=== PATIENT | female | born 1995 | race Caucasian/White ===

== ENCOUNTER 2016-11-21 01:27 | Emergency (ER) | payer BC, OTHER ==
[~2016-11-21 01:27] MED LIST: AUGM500T34 OR; VICO5TAB16 PO; no historical meds
--- NOTE | 2016-11-21 02:59 | EDDOCDS ---
Nurse's Notes [facility] Name: Ines Montemayor Age: 21 yrs Sex: Female : 1995 Arrival Date: 11/21/2016 Time: 01:27 Bed TR3 Private MD: Diagnosis: Radiculopathy, cervical region Presentation: 11/21 01:44 Presenting complaint: Patient states: right shoulder pain started about 1800, comes in [facility] spurts and goes down into arm, forearm, hand, and fingertips. Adult Sepsis Screening: The patient does not have new or worsening altered mentation. Patient's respiratory rate is less than 22. Systolic blood pressure is greater than 100. Patient has a qSOFA score of 0- Negative Sepsis Screen. Suicide/Homicide risk assessment- the patient denies having any suicidal and/or homicidal ideations and does not present with any other emotional, behavioral or mental health complaints. Status: Patient is not a marketing services rep or dependent. Transition of care: patient was not received from another setting of care. 01:44 Acuity: GURPREET Level 4 [facility] 01:44 Method Of Arrival: Walkin/Carried/Asstd [facility] Triage Assessment: 01:46 General: Appears in no apparent distress, comfortable, Behavior is appropriate for age, [facility] cooperative. Pain: Location: right arm Pain currently is 4 out of 10 on a pain scale. HIV screening NA for this visit Offered previously. Musculoskeletal: Circulation, motion, and sensation intact Range of motion intact in all extremities. 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 Aleve 220 mg Oral cap (Last dose: 11/21/2016 00:00) 2. Merina IUD - PMHx: none; - PSHx: Appendectomy; - Social history: Smoking status: Patient states was never smoker of tobacco. No barriers to communication noted. - Family history: Not pertinent. - : The pt / caregiver states he / she is not on anticoagulants. Home medication list is obtained from the patient. - Exposure Risk Screening:: None identified. Screenin:56 Screening information is obtained from the patient. Fall risk: No risks identified. [facility] Assistance ADL's: requires no assistance with activities of daily living. Abuse/DV Screen: The patient / caregiver reports he/she is: not in a situation that causes fear, pain or injury. Nutritional screening: No deficits noted. Advance Directives: There is no active DNR order. home support is adequate. Assessment: 02:56 General: Appears in no apparent distress, comfortable, Behavior is appropriate for age, cjh cooperative, pleasant. Neurological: Level of Consciousness is awake, alert, Oriented to person, place, time. Respiratory: Airway is patent Respiratory effort is even, unlabored, Respiratory pattern is regular, symmetrical. Musculoskeletal: Circulation, motion, and sensation intact Range of motion intact in all extremities. Vital Signs: 01:33 BP 134 / 63; Pulse 78; Resp 18; Temp 97.6(O); Pulse Ox 99% ; Weight 99.79 kg; Height 5 ajs ft. 4 in. (162.56 cm); Pain 4/10; 01:33 Body Mass Index 37.76 (99.79 kg, 162.56 cm) ajs Vitals: 01:44 Log In Time: November 21, 2016 at 01:23. [facility] ED Course: 01:29 Patient visited by Iliana Denton. gjb 01:29 Patient moved to Waiting gjb 01:34 Patient visited by Shweta Lyman. ajs 01:43 Patient moved to Triage 2 cjh 01:45 Triage Initiated cjh 01:50 Patient moved to Triage 3 ajs 01:53 Favio Weathers PA is PHCP. btw 01:53 Hannah Valdez MD is Attending Physician. btw 01:53 Patient visited by Favio Weathers PA. btw 02:00 Leonard Shaikh DO is Referral Physician. btw 02:16 Patient moved to TR3 cj 02:19 [facility] Payment Agreement was scanned into [employer] and attached to record. hs2 02:56 The patient / caregiver is instructed regarding the plan of care and ED course. [facility] 02:56 No IV's were initiated during this patient's visit. No procedures done that require [facility] assistance. Order Results: There are currently no results for this order. Outcome: 02:01 Discharge ordered by Provider. btw 02:56 Discharge Assessment: Patient awake, alert and oriented x 3. No cognitive and/or [facility] functional deficits noted. Patient verbalized understanding of disposition instructions. patient administered narcotics - no. The following High Risk Discharge criteria are identified: None. Discharged to home ambulatory. Condition: good Condition: stable. Discharge instructions given to patient, Instructed on discharge instructions, follow up and referral plans. medication usage, Demonstrated understanding of instructions, medications, Pt was receptive of discharge instructions/ teaching. Prescriptions given X 2. No special radiology studies were completed. Property :Personal belongings accompany Pt. 02:58 Patient left the ED. [facility] Signatures: Favio Weathers PA PA btw Slate, Amanda ajs Hafner, Jane, RN RN [facility] Iliana Denton Hillary, Reg Reg hs2 MTDD
--- NOTE | 2016-11-21 02:59 | EDDOCDS ---
Physician Documentation [facility] Name: Ines Montemayor Age: 21 yrs Sex: Female : 1995 Arrival Date: 11/21/2016 Time: 01:27 Bed TR3 Private MD: Disposition: 11/21/16 02:01 Discharged to Home/Self Care. Impression: Radiculopathy, cervical region. - Condition is Stable. - Discharge Instructions: Cervical Radiculopathy, [id number]. - Prescriptions for Robaxin- 750 750 mg Oral Tablet - take 1 tablet by ORAL route every 6 hours As needed; 40 tablet. etodolac 200 mg Oral Capsule - take 1 capsule by ORAL route 3 times per day; 30 capsule. - Medication Reconciliation, Local Pharmacy Hours form. - Follow up: Leonard Shaikh DO; When: Call to arrange an appointment; Reason: Further diagnostic work-up, Recheck today's complaints, Continuance of care. - Problem is new. - Symptoms are unchanged. Historical: - Allergies: no known allergies; - Home Meds: 1. Aleve 220 mg Oral cap (Last dose: 11/21/2016 00:00) 2. Merina IUD - PMHx: none; - PSHx: Appendectomy; - Social history: Smoking status: Patient states was never smoker of tobacco. No barriers to communication noted. - Family history: Not pertinent. - : The pt / caregiver states he / she is not on anticoagulants. Home medication list is obtained from the patient. - Exposure Risk Screening:: None identified. 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 4 in. (162.56 cm); Pain 4/10; 01:33 Body Mass Index 37.76 (99.79 kg, 162.56 cm) [facility] MDM: 02:18 Financial registration complete. hs2 02:19 [facility] Payment Agreement was scanned into [employer] and attached to record. hs2 Signatures: Favio Weathers PA PA btw Marina Camacho RN RN Marilia Garcia, Reg Reg hs2 The chart was reviewed and I authenticate all verbal orders and agree with the evaluation and treatment provided.Attachments: 02:19 [facility] Payment Agreement hs2 MTDD
--- NOTE | 2016-11-23 03:59 | EDDOCDS ---
Physician Documentation [facility] Name: Ines Montemayor Age: 21 yrs Sex: Female : 1995 Arrival Date: 11/21/2016 Time: 01:27 Bed TR3 Private MD: Disposition: 11/21/16 02:01 Discharged to Home/Self Care. Impression: Radiculopathy, cervical region. - Condition is Stable. - Discharge Instructions: Cervical Radiculopathy, [id number]-rp-[id number]. - Prescriptions for Robaxin- 750 750 mg Oral Tablet - take 1 tablet by ORAL route every 6 hours As needed; 40 tablet. etodolac 200 mg Oral Capsule - take 1 capsule by ORAL route 3 times per day; 30 capsule. - Medication Reconciliation, Local Pharmacy Hours form. - Follow up: Leonard Shaikh DO; When: Call to arrange an appointment; Reason: Further diagnostic work-up, Recheck today's complaints, Continuance of care. - Problem is new. - Symptoms are unchanged. Historical: - Allergies: no known allergies; - Home Meds: 1. Aleve 220 mg Oral cap (Last dose: 11/21/2016 00:00) 2. Merina IUD - PMHx: none; - PSHx: Appendectomy; - Social history: Smoking status: Patient states was never smoker of tobacco. No barriers to communication noted. - Family history: Not pertinent. - : The pt / caregiver states he / she is not on anticoagulants. Home medication list is obtained from the patient. - Exposure Risk Screening:: None identified. 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 4 in. (162.56 cm); Pain 4/10; 01:33 Body Mass Index 37.76 (99.79 kg, 162.56 cm) [facility] MDM: 02:18 Financial registration complete. hs2 02:19 [facility] Payment Agreement was scanned into [employer] and attached to record. hs2 13:43 T-Sheet-- Draft Copy was scanned into [employer] and attached to record. gb Signatures: Johanna May, Reg Reg gb Favio Weathers PA PA btw Marina Camacho,RN RN [facility] Marilia Coreas, Reg Reg hs2 The chart was reviewed and I authenticate all verbal orders and agree with the evaluation and treatment provided.Attachments: 02:19 [facility] Payment Agreement hs2 13:43 T-Sheet-- Draft Copy gb Chart Complete MTDD
--- NOTE | 2016-11-23 03:59 | EDDOCDS ---
Nurse's Notes [facility] Name: Ines Montemayor Age: 21 yrs Sex: Female : 1995 Arrival Date: 11/21/2016 Time: 01:27 Bed TR3 Private MD: Diagnosis: Radiculopathy, cervical region Presentation: 11/21 01:44 Presenting complaint: Patient states: right shoulder pain started about 1800, comes in [facility] spurts and goes down into arm, forearm, hand, and fingertips. Adult Sepsis Screening: The patient does not have new or worsening altered mentation. Patient's respiratory rate is less than 22. Systolic blood pressure is greater than 100. Patient has a qSOFA score of 0- Negative Sepsis Screen. Suicide/Homicide risk assessment- the patient denies having any suicidal and/or homicidal ideations and does not present with any other emotional, behavioral or mental health complaints. Status: Patient is not a director of home health services or dependent. Transition of care: patient was not received from another setting of care. 01:44 Acuity: GURPREET Level 4 [facility] 01:44 Method Of Arrival: Walkin/Carried/Asstd [facility] Triage Assessment: 01:46 General: Appears in no apparent distress, comfortable, Behavior is appropriate for age, [facility] cooperative. Pain: Location: right arm Pain currently is 4 out of 10 on a pain scale. HIV screening NA for this visit Offered previously. Musculoskeletal: Circulation, motion, and sensation intact Range of motion intact in all extremities. 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 Aleve 220 mg Oral cap (Last dose: 11/21/2016 00:00) 2. Merina IUD - PMHx: none; - PSHx: Appendectomy; - Social history: Smoking status: Patient states was never smoker of tobacco. No barriers to communication noted. - Family history: Not pertinent. - : The pt / caregiver states he / she is not on anticoagulants. Home medication list is obtained from the patient. - Exposure Risk Screening:: None identified. Screenin:56 Screening information is obtained from the patient. Fall risk: No risks identified. [facility] Assistance ADL's: requires no assistance with activities of daily living. Abuse/DV Screen: The patient / caregiver reports he/she is: not in a situation that causes fear, pain or injury. Nutritional screening: No deficits noted. Advance Directives: There is no active DNR order. home support is adequate. Assessment: 02:56 General: Appears in no apparent distress, comfortable, Behavior is appropriate for age, cjh cooperative, pleasant. Neurological: Level of Consciousness is awake, alert, Oriented to person, place, time. Respiratory: Airway is patent Respiratory effort is even, unlabored, Respiratory pattern is regular, symmetrical. Musculoskeletal: Circulation, motion, and sensation intact Range of motion intact in all extremities. Vital Signs: 01:33 BP 134 / 63; Pulse 78; Resp 18; Temp 97.6(O); Pulse Ox 99% ; Weight 99.79 kg; Height 5 ajs ft. 4 in. (162.56 cm); Pain 4/10; 01:33 Body Mass Index 37.76 (99.79 kg, 162.56 cm) ajs Vitals: 01:44 Log In Time: November 21, 2016 at 01:23. [facility] ED Course: 01:29 Patient visited by Iliana Denton. gjb 01:29 Patient moved to Waiting gjb 01:34 Patient visited by Shweta Lyman. ajs 01:43 Patient moved to Triage 2 cjh 01:45 Triage Initiated cjh 01:50 Patient moved to Triage 3 ajs 01:53 Favio Weathers PA is PHCP. btw 01:53 Hannah Valdez MD is Attending Physician. btw 01:53 Patient visited by Favio Weathers PA. btw 02:00 Leonard Shaikh DO is Referral Physician. btw 02:16 Patient moved to TR3 cj 02:19 [facility] Payment Agreement was scanned into [employer] and attached to record. hs2 02:56 The patient / caregiver is instructed regarding the plan of care and ED course. [facility] 02:56 No IV's were initiated during this patient's visit. No procedures done that require [facility] assistance. 13:43 T-Sheet-- Draft Copy was scanned into [employer] and attached to record. gb Order Results: There are currently no results for this order. Outcome: 02:01 Discharge ordered by Provider. btw 02:56 Discharge Assessment: Patient awake, alert and oriented x 3. No cognitive and/or [facility] functional deficits noted. Patient verbalized understanding of disposition instructions. patient administered narcotics - no. The following High Risk Discharge criteria are identified: None. Discharged to home ambulatory. Condition: good Condition: stable. Discharge instructions given to patient, Instructed on discharge instructions, follow up and referral plans. medication usage, Demonstrated understanding of instructions, medications, Pt was receptive of discharge instructions/ teaching. Prescriptions given X 2. No special radiology studies were completed. Property :Personal belongings accompany Pt. 02:58 Patient left the ED. [facility] Signatures: Johanna May, Reg Reg gb Favio Weathers PA PA btw Slate, Amanda ajs Hafner, Jane, RN RN [facility] Iliana Denton Hillary, Reg Reg hs2 Chart Complete BETI
--- NOTE | 2016-11-23 03:59 | EDDOCDS ---
Physician Documentation [facility] Name: Ines Montemayor Age: 21 yrs Sex: Female : 1995 Arrival Date: 11/21/2016 Time: 01:27 Bed TR3 Private MD: Disposition: 11/21/16 02:01 Discharged to Home/Self Care. Impression: Radiculopathy, cervical region. - Condition is Stable. - Discharge Instructions: Cervical Radiculopathy, [id number]. - Prescriptions for Robaxin- 750 750 mg Oral Tablet - take 1 tablet by ORAL route every 6 hours As needed; 40 tablet. etodolac 200 mg Oral Capsule - take 1 capsule by ORAL route 3 times per day; 30 capsule. - Medication Reconciliation, Local Pharmacy Hours form. - Follow up: Leonard Shaikh DO; When: Call to arrange an appointment; Reason: Further diagnostic work-up, Recheck today's complaints, Continuance of care. - Problem is new. - Symptoms are unchanged. Historical: - Allergies: no known allergies; - Home Meds: 1. Aleve 220 mg Oral cap (Last dose: 11/21/2016 00:00) 2. Merina IUD - PMHx: none; - PSHx: Appendectomy; - Social history: Smoking status: Patient states was never smoker of tobacco. No barriers to communication noted. - Family history: Not pertinent. - : The pt / caregiver states he / she is not on anticoagulants. Home medication list is obtained from the patient. - Exposure Risk Screening:: None identified. 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 4 in. (162.56 cm); Pain 4/10; 01:33 Body Mass Index 37.76 (99.79 kg, 162.56 cm) [facility] MDM: 02:18 Financial registration complete. hs2 02:19 [facility] Payment Agreement was scanned into [employer] and attached to record. hs2 13:43 T-Sheet-- Draft Copy was scanned into [employer] and attached to record. gb Signatures: Johanna May, Reg Reg gb Favio Weathers PA PA btw Marina Camacho,RN RN [facility] Marilia Coreas, Reg Reg hs2 The chart was reviewed and I authenticate all verbal orders and agree with the evaluation and treatment provided.Attachments: 02:19 [facility] Payment Agreement hs2 13:43 T-Sheet-- Draft Copy gb Chart Complete MTDD
== END 2016-11-21 02:58 | disposition home or self-care (01) ==
LOC: M ED 01:27
DX: M54.12 Radiculopathy, cervical region (principal); Z79.3 Long term (current) use of hormonal contraceptives

== ENCOUNTER 2017-02-07 00:38 | Emergency (ER) | payer BC ==
[~2017-02-07] VITALS: Ht 162.6 cm; Wt 99.8 kg
[2017-02-07 01:43] VITALS: BP 135/91
[2017-02-07] MEDS ORDERED: AMOX500C PO (02:30)
[2017-02-07] MEDS ORDERED: AMOXICILLIN 500 MG CAP PO ONE (02:30)
== END 2017-02-07 02:38 | disposition home or self-care (01) ==
LOC: M ED 02:04
DX: H66.91 Otitis media, unspecified, right ear (principal)

== ENCOUNTER 2017-07-03 06:16 | Emergency (ER) | payer BC, SELFPAY ==
[~2017-07-03] VITALS: Ht 162.6 cm; Wt 100.0 kg
[~2017-07-03 06:16] MED LIST changes: +AMOX500C PO
[2017-07-03] MEDS ORDERED: CLEO300C2 PO (07:21)
[2017-07-03] MEDS ORDERED: NORCOTAB PO (07:21)
[2017-07-03 07:29] VITALS: BP 147/92
[2017-07-03] MEDS ORDERED: LIDOCAINE VISCOUS 2% SOLN 15ML UDC SSP ONE (07:30)
[2017-07-03] MEDS ORDERED: CLINDAMYCIN 150 MG CAP PO ONE (07:30)
== END 2017-07-03 07:29 | disposition home or self-care (01) ==
LOC: M ED 06:16
DX: K04.7 Periapical abscess without sinus (principal); R05 Cough

== ENCOUNTER → 2017-11-06 | Outpatient (CLI) | payer MEDICAID ==
[2017-11-06 18:47] LABS: BASO % 0.3 % (0.0-1.0); EOS # 0.1 10^3/uL (0.0-0.50); EOS % 0.7 % (0.0-3.0); IMMATURE GRANULOCYTE # 0.1 10^3/uL (0-0); IMMATURE GRANULOCYTE % 0.5 % (0-0); LYMPH # 2.3 10^3/uL (1.5-6.5); LYMPH % 24.4 % (24.0-44.0); MEAN CORPUSCULAR HEMOGLOBIN 30.3 pg (27.0-33.0); MEAN CORPUSCULAR HGB CONC 33.8 g/dl (32.0-36.5); MEAN CORPUSCULAR VOLUME 89.6 fl (80.0-96.0); MONO # 0.6 10^3/uL (0.0-0.8); MONO % 5.8 % (0.0-5.0); NEUTROPHILS # 6.4 10^3/uL (1.8-7.7); NEUTROPHILS % 68.3 % (36.0-66.0); PLATELET COUNT, AUTOMATED 282 10^3/uL (150-450); WHITE BLOOD COUNT 9.4 10^3/uL (4.0-10.0)
[2017-11-07 10:26] LABS: HBsAg Prenatal NEGATIVE (NEGATIVE)
== END ==
LOC: M SMT 13:01
DX: Z36.89 Encounter for other specified antenatal screening (principal); Z3A.08 8 weeks gestation of pregnancy
CPT/HCPCS: 86762

== ENCOUNTER 2017-11-10 18:52 | Emergency (ER) | payer MEDICAID | END 2017-11-10 22:43 | disposition home or self-care (01) | LOC: M ED 18:52 | DX: O99.89 Other specified diseases and conditions complicating pregnancy, childbirth and the puerperium (principal); H92.01 Otalgia, right ear; O99.611 Diseases of the digestive system complicating pregnancy, first trimester; K08.89 Other specified disorders of teeth and supporting structures; Z3A.08 8 weeks gestation of pregnancy | CPT/HCPCS: 99283 ==

== ENCOUNTER → 2017-12-03 | Outpatient (REF) | payer MEDICAID ==
[2017-12-04 11:36] LABS: CHLAMYDIA DNA AMPLIFICATION NEGATIVE (NEGATIVE); GC DNA AMPLIFICATION NEGATIVE (NEGATIVE)
== END ==
LOC: M LAB REF 09:39
DX: Z11.3 Encounter for screening for infections with a predominantly sexual mode of transmission (principal)
CPT/HCPCS: 87591

== ENCOUNTER 2017-12-08 15:33 | Emergency (ER) | payer MEDICAID ==
[2017-12-08] MEDS: METOCLOPRAMIDE INJ 10MG/2ML VIAL (J2765) IV (19:15)
[2017-12-08] MEDS: diphenhydrAMINE INJ 50MG/ML VIAL (J1200) IV (19:15)
[2017-12-08] MEDS: NS 1,000 ML IV (19:15)
[2017-12-08 19:55] LABS: BASO % 0.2 % (0.0-1.0); EOS # 0.1 10^3/uL (0.0-0.50); EOS % 0.8 % (0.0-3.0); HEMATOCRIT 42.3 % (36.0-47.0); HEMOGLOBIN 14.5 g/dl (12.0-16.0); IMMATURE GRANULOCYTE % 0.3 % (0-0); LYMPH # 2.5 10^3/uL (1.5-6.5); LYMPH % 23.8 % (24.0-44.0); MEAN CORPUSCULAR HEMOGLOBIN 30.4 pg (27.0-33.0); MEAN CORPUSCULAR HGB CONC 34.3 g/dl (32.0-36.5); MEAN CORPUSCULAR VOLUME 88.7 fl (80.0-96.0); MONO # 0.5 10^3/uL (0.0-0.8); MONO % 5.2 % (0.0-5.0); NEUTROPHILS # 7.3 10^3/uL (1.8-7.7); NEUTROPHILS % 69.7 % (36.0-66.0); PLATELET COUNT, AUTOMATED 258 10^3/uL (150-450); RED BLOOD COUNT 4.77 10^6/uL (4.00-5.40); RED CELL DISTRIBUTION WIDTH 12.8 % (11.5-14.5); WHITE BLOOD COUNT 10.5 10^3/uL (4.0-10.0)
[2017-12-08 20:16] LABS: ALBUMIN 3.7 GM/DL (3.2-5.2); ALBUMIN/GLOBULIN RATIO 0.82 (1.00-1.93); ALKALINE PHOSPHATASE 72 U/L (45-117); ALT/SGPT 25 U/L (12-78); ANION GAP 11 MEQ/L (8-16); AST/SGOT 17 U/L (7-37); BILIRUBIN,TOTAL 0.3 MG/DL (0.2-1.0); BLOOD UREA NITROGEN 5 MG/DL (7-18); CALCIUM LEVEL 9.2 MG/DL (8.5-10.1); CARBON DIOXIDE LEVEL 25 MEQ/L (21-32); CHLORIDE LEVEL 103 MEQ/L (98-107); CREATININE FOR GFR 0.52 MG/DL (0.55-1.30); GLOMERULAR FILTRATION RATE > 60.0 (>60); GLUCOSE, FASTING 81 MG/DL (70-100); POTASSIUM SERUM 3.8 MEQ/L (3.5-5.1); SODIUM LEVEL 139 MEQ/L (136-145); TOTAL PROTEIN 8.2 GM/DL (6.4-8.2)
== END 2017-12-08 22:01 | disposition home or self-care (01) ==
LOC: M ED 15:33
DX: O21.9 Vomiting of pregnancy, unspecified (principal); Z3A.00 Weeks of gestation of pregnancy not specified; Z87.820 Personal history of traumatic brain injury
CPT/HCPCS: J1200

== ENCOUNTER → 2018-01-15 | Outpatient (CLI) | payer MEDICAID | LOC: M RAD 14:01 | DX: Z36.89 Encounter for other specified antenatal screening (principal); Z3A.18 18 weeks gestation of pregnancy | CPT/HCPCS: 76811 ==

== ENCOUNTER → 2018-02-10 | Outpatient (CLI) | payer MEDICAID | LOC: M RAD 14:00 | DX: R22.42 Localized swelling, mass and lump, left lower limb (principal) | CPT/HCPCS: 93971 ==

== ENCOUNTER → 2018-02-12 | Outpatient (CLI) | payer MEDICAID | LOC: M RAD 10:25 | DX: Z34.82 Encounter for supervision of other normal pregnancy, second trimester (principal); Z36.2 Encounter for other antenatal screening follow-up; Z3A.22 22 weeks gestation of pregnancy | CPT/HCPCS: 76816 ==

== ENCOUNTER → 2018-03-12 | Outpatient (CLI) | payer MEDICAID | LOC: M SMT 08:27 | DX: Z36.2 Encounter for other antenatal screening follow-up (principal); Z3A.26 26 weeks gestation of pregnancy | CPT/HCPCS: 76816 ==

== ENCOUNTER → 2018-04-17 | Outpatient (CLI) | payer MEDICAID, BC, SELFPAY ==
[2018-04-17 10:12] LABS: BASO % 0.1 % (0.0-1.0); EOS # 0.1 10^3/uL (0.0-0.50); EOS % 0.7 % (0.0-3.0); HEMATOCRIT 33.8 % (36.0-47.0); HEMOGLOBIN 11.3 g/dl (12.0-15.5); IMMATURE GRANULOCYTE % 0.4 % (0-3.0); LYMPH # 1.7 10^3/uL (1.5-6.5); LYMPH % 20.8 % (24.0-44.0); MEAN CORPUSCULAR HEMOGLOBIN 29.2 pg (27.0-33.0); MEAN CORPUSCULAR HGB CONC 33.4 g/dl (32.0-36.5); MEAN CORPUSCULAR VOLUME 87.3 fl (80.0-96.0); MONO # 0.4 10^3/uL (0.0-0.8); MONO % 4.6 % (0.0-5.0); NEUTROPHILS # 6.1 10^3/uL (1.8-7.7); NEUTROPHILS % 73.4 % (36.0-66.0); PLATELET COUNT, AUTOMATED 217 10^3/uL (150-450); RED BLOOD COUNT 3.87 10^6/uL (4.00-5.40); RED CELL DISTRIBUTION WIDTH 13.6 % (11.5-14.5); WHITE BLOOD COUNT 8.3 10^3/uL (4.0-10.0)
[2018-04-17 10:28] LABS: GLUCOSE CHALLENGE TEST 1 HOUR 130 MG/DL (LESS THAN 140)
== END ==
LOC: M LAB 08:26
DX: Z34.82 Encounter for supervision of other normal pregnancy, second trimester (principal); Z36.89 Encounter for other specified antenatal screening
CPT/HCPCS: 82950

== ENCOUNTER → 2018-04-21 | Outpatient (CLI) | payer MEDICAID, SELFPAY, BC ==
[2018-04-21 08:14] LABS: GLUCOSE, FASTING 88 MG/DL (LESS THAN 95)
[2018-04-21 09:34] LABS: 1 HR GLUCOSE 155 MG/DL (LESS THAN 180)
[2018-04-21 10:17] LABS: 2 HR GLUCOSE 127 MG/DL (LESS THAN 155)
[2018-04-21 11:20] LABS: 3 HR GLUCOSE 118 MG/DL (LESS THAN 140)
== END ==
LOC: M LAB 07:22
DX: Z34.83 Encounter for supervision of other normal pregnancy, third trimester (principal); Z36.89 Encounter for other specified antenatal screening
CPT/HCPCS: 82951

== ENCOUNTER 2018-05-25 00:47 | Outpatient (CLI) | payer BC, MEDICAID ==
[2018-05-25] MEDS ORDERED: LR 1,000 ML IV ×3 (02:09)
[2018-05-25] MEDS ORDERED: LACTATED RINGER'S 1000 ML IV ×3 (02:09)
[2018-05-25 02:36] LABS: BASO % 0.1 % (0.0-1.0); EOS % 0.3 % (0.0-3.0); HEMOGLOBIN 11.1 g/dl (12.0-15.5); IMMATURE GRANULOCYTE % 0.3 % (0-3.0); LYMPH # 1.6 10^3/uL (1.5-6.5); LYMPH % 14.1 % (24.0-44.0); MEAN CORPUSCULAR HEMOGLOBIN 27.7 pg (27.0-33.0); MEAN CORPUSCULAR HGB CONC 32.6 g/dl (32.0-36.5); MEAN CORPUSCULAR VOLUME 84.8 fl (80.0-96.0); MONO # 0.5 10^3/uL (0.0-0.8); MONO % 4.1 % (0.0-5.0); NEUTROPHILS # 9.3 10^3/uL (1.8-7.7); NEUTROPHILS % 81.1 % (36.0-66.0); PLATELET COUNT, AUTOMATED 230 10^3/uL (150-450); RED BLOOD COUNT 4.01 10^6/uL (4.00-5.40); RED CELL DISTRIBUTION WIDTH 13.9 % (11.5-14.5); WHITE BLOOD COUNT 11.4 10^3/uL (4.0-10.0)
[2018-05-25 03:02] LABS: ALBUMIN 2.5 GM/DL (3.2-5.2); ALBUMIN/GLOBULIN RATIO 0.66 (1.00-1.93); ALKALINE PHOSPHATASE 161 U/L (45-117); ALT/SGPT 19 U/L (12-78); ANION GAP 11 MEQ/L (8-16); AST/SGOT 15 U/L (7-37); BILIRUBIN,TOTAL 0.3 MG/DL (0.2-1.0); BLOOD UREA NITROGEN 4 MG/DL (7-18); CALCIUM LEVEL 8.5 MG/DL (8.5-10.1); CARBON DIOXIDE LEVEL 22 MEQ/L (21-32); CHLORIDE LEVEL 109 MEQ/L (98-107); CREATININE FOR GFR 0.51 MG/DL (0.55-1.30); GLOMERULAR FILTRATION RATE > 60.0 (>60); GLUCOSE, FASTING 86 MG/DL (70-100); LIPASE 80 U/L (73-393); SODIUM LEVEL 142 MEQ/L (136-145); TOTAL PROTEIN 6.3 GM/DL (6.4-8.2)
== END 2018-05-25 04:43 | disposition home or self-care (01) ==
LOC: M LDO 00:47
DX: O99.89 Other specified diseases and conditions complicating pregnancy, childbirth and the puerperium (principal); Z3A.37 37 weeks gestation of pregnancy; R10.10 Upper abdominal pain, unspecified; R11.10 Vomiting, unspecified; E86.0 Dehydration
CPT/HCPCS: 59025; 83690

== ENCOUNTER → 2018-05-27 | Outpatient (REF) | payer MEDICAID | LOC: M LAB REF 13:23 | DX: Z34.83 Encounter for supervision of other normal pregnancy, third trimester (principal) ==

== ENCOUNTER 2018-06-22 11:26 | Inpatient (IN) | payer MEDICAID ==
[2018-06-22] MEDS: miSOPROStol 50 MCG 1/2 TAB (S0191) PO ×3 (13:24→20:30)
[2018-06-22 13:29] LABS: HEMATOCRIT 32.5 % (36.0-47.0); HEMOGLOBIN 10.6 g/dl (12.0-15.5); MEAN CORPUSCULAR HEMOGLOBIN 27.2 pg (27.0-33.0); MEAN CORPUSCULAR HGB CONC 32.6 g/dl (32.0-36.5); MEAN CORPUSCULAR VOLUME 83.3 fl (80.0-96.0); PLATELET COUNT, AUTOMATED 229 10^3/uL (150-450); RED CELL DISTRIBUTION WIDTH 15.1 % (11.5-14.5); WHITE BLOOD COUNT 6.9 10^3/uL (4.0-10.0)
[2018-06-22] MEDS ORDERED: OXYTOCIN 30 UNITS IN 0.9% NaCl 500ML IV BAG (J2590) As Ordered (22:10)
[2018-06-23] MEDS: LR 1,000 ML IV (00:29)
[2018-06-23] MEDS: OXYTOCIN DRIP 30 UNITS in APPROPRIATE DILUENT 1 EA IV (00:39)
[2018-06-23] MEDS ORDERED: FENTANYL 2MCG/ML ROPIVACAINE 0.2% IN 0.9% NACL 200ML IVBAG As Ordered (01:36)
[2018-06-23] MEDS ORDERED: diphenhydrAMINE INJ 50MG/ML VIAL (J1200) IV (02:44)
[2018-06-23] MEDS ORDERED: EPIDURAL COMMENT XX (02:44)
[2018-06-23] MEDS: FENTANYL/ROPIVACAINE/NACL BAG 200 ML EPIDURAL (02:44)
[2018-06-23] MEDS ORDERED: EPIDURAL/PCA KEYS XX (02:44)
[2018-06-23] MEDS ORDERED: REFRIGERATOR IV KEYS XX (02:44)
[2018-06-23] MEDS ORDERED: LACTATED RINGER'S 1000 ML IV (02:44)
[2018-06-23] MEDS ORDERED: NALOXONE INJ 0.4 MG/1 ML VIAL (J2310) IV (02:44)
[2018-06-23] MEDS ORDERED: ePHEDrine SULFATE 25 MG/5 ML(5MG/ML) SYRINGE IV (02:44)
[2018-06-23] MEDS ORDERED: ONDANSETRON 4MG/2ML VIAL (J2405) IV ×2 (02:44→09:30)
[2018-06-23] MEDS ORDERED: DOCUSATE SODIUM 100 MG CAP PO (09:30)
[2018-06-23] MEDS ORDERED: ACETAMINOPHEN 500 MG TAB PO (09:30)
[2018-06-23] MEDS ORDERED: RHOGAM 300 MCG (1500 IU) INJ (J2790) IM (09:30)
[2018-06-23] MEDS ORDERED: DIBUCAINE 1% OINTMENT 30GM TOP (09:30)
[2018-06-23] MEDS: PRENATAL VITAMINS CHEWABLE TABLET PO (09:52)
[2018-06-23] MEDS: IBUPROFEN 800 MG TAB PO ×3 (09:52→19:35)
[2018-06-24] MEDS: PRENATAL VITAMINS CHEWABLE TABLET PO (08:56)
[2018-06-25] MEDS: PRENATAL VITAMINS CHEWABLE TABLET PO (09:00)
[2018-06-25] MEDS: MEASLES,MUMPS,RUBELLA VACCINE INJ (MMR-II) (90707) SC (11:47)
== END 2018-06-25 12:10 | disposition home or self-care (01) | DRG 560 ==
LOC: M LDI 11:26 → M OBS 06-23 12:34
PROVIDERS: Obstetrics & Gynecology
PROC: 3E0P7GC Introduction of Other Therapeutic Substance into Female Reproductive, Via Natural or Artificial Opening (ICD-10-PCS; 2018-06-22)
PROC: 10E0XZZ Delivery of Products of Conception, External Approach (ICD-10-PCS; principal; 2018-06-23)
PROC: 0KQM0ZZ Repair Perineum Muscle, Open Approach (ICD-10-PCS; 2018-06-23)
DX: O48.0 Post-term pregnancy (principal); Z3A.41 41 weeks gestation of pregnancy; O69.81X0 Labor and delivery complicated by cord around neck, without compression, not applicable or unspecified; O70.1 Second degree perineal laceration during delivery; Z37.0 Single live birth

== ENCOUNTER → 2019-03-04 | Outpatient (CLI) | payer BC, MEDICAID ==
[~2019-03-04] MED LIST changes: +CLEO300C2 PO; +DRAM50TA7 PO; +HYDR-3715 PO; +IBUP-1114 PO; +MAPA500T2 PO; +PREN1TAB26 PO
[2019-03-04 14:05] LABS: BASO % 0.3 % (0.0-1.0); EOS # 0.1 10^3/uL (0.0-0.50); HEMATOCRIT 37.3 % (36.0-47.0); HEMOGLOBIN 12.1 g/dl (12.0-15.5); LYMPH # 1.9 10^3/uL (1.5-6.5); LYMPH % 26.3 % (24.0-44.0); MEAN CORPUSCULAR HEMOGLOBIN 27.3 pg (27.0-33.0); MEAN CORPUSCULAR HGB CONC 32.4 g/dl (32.0-36.5); MONO # 0.4 10^3/uL (0.0-0.8); MONO % 5.9 % (0.0-5.0); NEUTROPHILS # 4.7 10^3/uL (1.8-7.7); NEUTROPHILS % 65.2 % (36.0-66.0); PLATELET COUNT, AUTOMATED 254 10^3/uL (150-450); RED BLOOD COUNT 4.44 10^6/uL (4.00-5.40); WHITE BLOOD COUNT 7.2 10^3/uL (4.0-10.0)
[2019-03-04 15:25] LABS: CHLAMYDIA DNA AMPLIFICATION NEGATIVE (NEGATIVE); GC DNA AMPLIFICATION NEGATIVE (NEGATIVE)
[2019-03-05 12:25] LABS: HEPATITIS C VIRUS ABY INDEX 0.1 INDEX (<0.8); RUBELLA IgG QUALITATIVE IMMUNE (IMMUNE)
[2019-03-05 15:21] LABS: HIV 1&2 SCREEN CENTAUR NEGATIVE (NEGATIVE)
== END ==
LOC: M SMT 10:55
PROVIDERS: ATTEND Advanced Practice Midwife
DX: Z34.81 Encounter for supervision of other normal pregnancy, first trimester (principal); Z3A.00 Weeks of gestation of pregnancy not specified

== ENCOUNTER → 2019-05-04 | Outpatient (CLI) | payer BC, MEDICAID ==
--- NOTE | 2019-05-04 11:38 | REP ---
Clinical: Anatomical evaluation. Comparison: None . Findings: Examination demonstrates a single live intrauterine in cephalic presentation. motion is identified by technologist. Placenta is noted posterior and grade zero without evidence for placenta previa or abruption. Amniotic fluid volume is normal. Cervix measures 5.0 cm in length and appears closed. No evidence for nuchal cord. Gestational age by LMP 19 weeks 4 days with LALY 09/24/2019 . Gestational age by current measurements 20 weeks 1 day with LALY 06/20 11:19 . FHR equals 157 beats per minute. BPD 4.7 cm 20 weeks 2 days HC 17.7 cm 20 weeks 1 day AC 14.5 cm 19 weeks 6 days FL 3.2 cm 20 weeks 0 days HL 3.1 cm 20 weeks 2 days HC/AC ratio 1.22 Estimated weight 324 grams (60th percentile). Anatomical assessment demonstrates normal structures including cranium, choroid plexus, cavum, lungs, diaphragm, stomach, cord insertion/three-vessel cord, kidneys/bladder, and extremities. Impression: 1. Single live intrauterine in cephalic presentation demonstrating appropriate interval growth. 2. Limited evaluation of the posterior fossa, facial features, heart/ventricular outflow tract and spine may warrant reevaluation and follow-up. Electronically Signed by Carlos Stephenson MD 05/04/2019 11:30 A
== END ==
LOC: M RAD 10:35
PROVIDERS: ATTEND Obstetrics & Gynecology
DX: Z34.82 Encounter for supervision of other normal pregnancy, second trimester (principal)

== ENCOUNTER → 2019-07-19 | Outpatient (CLI) | payer MEDICAID ==
[2019-07-19 10:57] LABS: HEMATOCRIT 33.7 % (36.0-47.0); HEMOGLOBIN 10.5 g/dl (12.0-15.5); MEAN CORPUSCULAR HEMOGLOBIN 26.6 pg (27.0-33.0); MEAN CORPUSCULAR HGB CONC 31.2 g/dl (32.0-36.5); MEAN CORPUSCULAR VOLUME 85.5 fl (80.0-96.0); PLATELET COUNT, AUTOMATED 217 10^3/uL (150-450); RED BLOOD COUNT 3.94 10^6/uL (4.00-5.40); WHITE BLOOD COUNT 7.3 10^3/uL (4.0-10.0)
== END ==
LOC: M LAB 08:33
PROVIDERS: ATTEND Advanced Practice Midwife
DX: Z34.82 Encounter for supervision of other normal pregnancy, second trimester (principal); Z3A.00 Weeks of gestation of pregnancy not specified

== ENCOUNTER → 2019-07-20 | Outpatient (CLI) | payer MEDICAID ==
--- NOTE | 2019-07-20 09:14 | REP ---
OB ULTRASOUND: Real-time sonographic evaluation of the gravid uterus is performed. There is a single intrauterine gestation with an estimated gestational age 30 weeks 4 days with EDC 09/24/2019. Today's measurements indicate appropriate growth. Biometry and Growth: BPD 78 mm = 31 weeks 1 day, 57th percentile HC 290 mm = 31 weeks 6 days, 70th percentile AC 263 mm = 30 weeks 3 days, 47th percentile FL 60 mm = 31 weeks 3 days, 61st percentile HC/AC ratio 1.10 within normal range. Estimated weight 1663 grams 49th percentile. SEEN/GROSSLY UNREMARKABLE Upper lip Yes Four-chamber heart Yes Stomach Yes Cord insertion Yes Three vessel cord Yes Kidneys Yes Bladder Yes Spine Yes All grossly unremarkable. Cervical length: Cervix is closed and measures 5.1 cm in length. heart rate: 139 beats per minute. position: Vertex. Placenta: Posterior and grade 0 with no previa or abruption. Amniotic fluid: Within normal limits, BRUNA 10.3 within normal range of 8.9 to 23.6. S/D ratio: 2.44 is below normal range of 2.5 to 3.5. RI: 0.59 is within normal range of 0..59 to 0.75. Electronically Signed by Bogdan Mason MD 07/21/2019 10:47 A
== END ==
LOC: M RAD 06:27
PROVIDERS: ATTEND Advanced Practice Midwife
DX: Z34.82 Encounter for supervision of other normal pregnancy, second trimester (principal)

== ENCOUNTER → 2019-08-27 | Outpatient (REF) | payer MEDICAID | LOC: M LAB REF 16:58 | PROVIDERS: ATTEND Advanced Practice Midwife | DX: Z36.85 Encounter for antenatal screening for Streptococcus B (principal) ==

== ENCOUNTER 2019-09-28 20:56 | Inpatient (IN) | payer MEDICAID ==
[~2019-09-28] VITALS: Ht 162.6 cm; Wt 120.4 kg
[2019-09-28] MEDS: miSOPROStol 50 MCG 1/2 TAB (S0191) SL SCH (02:30)
[2019-09-28 21:19] VITALS: BP 131/70
--- NOTE | 2019-09-28 22:30 | HPE ---
DATE OF ADMISSION: 09/28/2019 HISTORY: A 23-year-old 2, para 1 female at 40 and 6/7 weeks gestation by last menstrual period (LMP) consistent with 8-week ultrasound, estimated date of confinement (EDC) 09/22/2019, presents for labor induction. She denies contractions or vaginal bleeding. There is good movement. COURSE: Patient initiated care at 9 weeks gestation on 02/18/2019. Her first trimester blood pressure was 120/80, weight 251 pounds. No complications. OBSTETRICAL HISTORY: June 2018: 41-week vaginal delivery, 7 pound 15 ounce male , no complications. MEDICAL HISTORY: Noncontributory. SURGICAL HISTORY: Appendectomy. ALLERGIES: None. SOCIAL HISTORY: The patient lives in [place], [place]. She denies cigarettes, alcohol, or drug use. Partner is involved. FAMILY HISTORY: Noncontributory. PHYSICAL EXAMINATION: Blood pressure 134/74, pulse 84, afebrile. No apparent distress. Head and neck exam: Normal. Lungs: Clear. Heart: Regular rate and rhythm. Abdomen: Nontender, gravid. heart tones: Category 1. Contractions: Rare. Sterile vaginal exam: 2 cm, 50%, -2, posterior, moderate, vertex. Extremities: Nontender. LABS: Blood type A positive, rubella immune, RPR nonreactive. Hepatitis B and C negative. HIV negative. GBS negative 08/27/2019. ASSESSMENT: 23-year-old 2, para 1 female at 40 and 6/7 weeks gestation, presents for labor induction. PLAN: Patient admitted 09/28/2019. Risks of induction were discussed.
[2019-09-28 22:32] LABS: HEMATOCRIT 32.5 % (36.0-47.0); HEMOGLOBIN 10.1 g/dl (12.0-15.5); MEAN CORPUSCULAR HEMOGLOBIN 25.4 pg (27.0-33.0); MEAN CORPUSCULAR HGB CONC 31.1 g/dl (32.0-36.5); MEAN CORPUSCULAR VOLUME 81.7 fl (80.0-96.0); PLATELET COUNT, AUTOMATED 244 10^3/uL (150-450); RED BLOOD COUNT 3.98 10^6/uL (4.00-5.40); WHITE BLOOD COUNT 9.8 10^3/uL (4.0-10.0)
[2019-09-29] VITALS (15 sets, daily range): BP systolic 109–153; BP diastolic 55–96
[2019-09-29] MEDS: miSOPROStol 50 MCG 1/2 TAB (S0191) SL SCH (06:30)
[2019-09-29] MEDS ORDERED: LR 1,000 ML IV SCH (10:17)
[2019-09-29] MEDS ORDERED: OXYTOCIN DRIP 30 UNITS in IV 1 EA IV SCH (10:30)
[2019-09-29] MEDS ORDERED: PROMETHAZINE INJ 25 MG/ML VIAL (J2550) IV ONE (10:45)
[2019-09-29] MEDS ORDERED: BUTORPHANOL 2 MG/ML INJ (J0595) IV ONE (10:45)
[2019-09-29] MEDS ORDERED: ACETAMINOPHEN 500 MG TAB PO PRN (14:00)
[2019-09-29] MEDS ORDERED: ACETAMINOPHEN TAB 650MG DOSE (2X325MG) PO PRN (14:00)
[2019-09-29] MEDS ORDERED: LIDOCAINE 1% MDV 20ML VIAL INFIL ONE (14:00)
[2019-09-29] MEDS ORDERED: RHOGAM 300 MCG (1500 IU) INJ (J2790) IM SCH (14:00)
[2019-09-29] MEDS ORDERED: MEASLES,MUMPS,RUBELLA VACCINE INJ (MMR-II) (90707) SC SCH (14:00)
[2019-09-29] MEDS ORDERED: METHYLERGONOVINE MALEATE 0.2 MG TAB PO PRN (14:00)
[2019-09-29] MEDS ORDERED: IBUPROFEN 600 MG TAB PO PRN (14:00)
[2019-09-29] MEDS ORDERED: IBUPROFEN 800 MG TAB PO PRN (14:00)
[2019-09-29] MEDS ORDERED: DIBUCAINE 1% OINTMENT 30GM TOP PRN (14:00)
--- NOTE | 2019-09-29 14:04 | DN ---
DATE: 09/29/2019 Ines is a 23-year-old 2, para 2-0-0-2 now who was admitted to labor and delivery for induction of labor for social reasons. Misoprostol and IV Pitocin was used and labor did ensue. She utilized IV pain medications to cope with her labor. She had assisted rupture of membranes of small amount of clear odorless fluid at 1305. She reached full dilation at 1313. She pushed to a normal spontaneous vaginal delivery of a live male infant in left occiput anterior (MICAELA) position with restitution to left occiput transverse (LOT) position at 1318. There was a nuchal cord times one loose that was removed manually at the time of delivery. His shoulders delivered spontaneously in the corpus immediately followed. The male was placed on maternal abdomen crying and active. Mouth and nares were bulb suctioned. Cord was clamped times two. Once pulsations ceased it was cut by the father of the baby under my direction. A spontaneous expulsion of an intact placenta with three-vessel cord by Donis mechanism was at 1325. Uterine hemostasis achieved with IV Pitocin rapid infusion and uterine fundal massage. Estimated blood loss 250 mL. Perineum and vagina inspected and noted to have a vaginal abrasion. This was repaired with one interrupted suture for hemostasis. Niotaze male weighed 3010 grams, 7 pounds 1 ounce, of 8 and 9. Mom plans to breastfeed her son and the family have named him Ramsey. At the close of delivery lap counts, needle counts and instrument counts were correct and verified.
[2019-09-29] MEDS: DOCUSATE SODIUM 100 MG CAP PO PRN (19:54)
[2019-09-30 06:02] VITALS: BP 117/65
[2019-09-30] MEDS: PRENATAL VITAMINS CHEWABLE TABLET PO SCH (10:14)
[2019-09-30 17:58] VITALS: BP 133/76
[2019-09-30] MEDS: DOCUSATE SODIUM 100 MG CAP PO PRN (20:49)
[2019-10-01 06:21] VITALS: BP 123/66
[2019-10-01] MEDS: PRENATAL VITAMINS CHEWABLE TABLET PO SCH (10:06)
[2019-10-01 18:18] VITALS: BP 130/68
== END 2019-10-01 18:18 | disposition home or self-care (01) | DRG 560 ==
LOC: M LDI 20:56 → M OBS 09-29 16:21
PROVIDERS: ADMIT Specialist; ATTEND Advanced Practice Midwife
PROC: 10E0XZZ Delivery of Products of Conception, External Approach (ICD-10-PCS; principal; 2019-09-29)
PROC: 3E0P7GC Introduction of Other Therapeutic Substance into Female Reproductive, Via Natural or Artificial Opening (ICD-10-PCS; 2019-09-29)
PROC: 10907ZC Drainage of Amniotic Fluid, Therapeutic from Products of Conception, Via Natural or Artificial Opening (ICD-10-PCS; 2019-09-29)
DX: O69.81X0 Labor and delivery complicated by cord around neck, without compression, not applicable or unspecified (principal); Z3A.40 40 weeks gestation of pregnancy; Z37.0 Single live birth

== ENCOUNTER → 2021-02-27 | Outpatient (CLI) | payer OTHER ==
[2021-02-27 12:59] LABS: BASO % 0.6 % (0.0-1.0); EOS # 0.1 10^3/uL (0.0-0.5); HEMATOCRIT 36.3 % (36.0-47.0); HEMOGLOBIN 11.8 g/dl (12.0-15.5); LYMPH # 1.5 10^3/uL (1.5-5.0); LYMPH % 30.6 % (24.0-44.0); MEAN CORPUSCULAR HEMOGLOBIN 28.6 pg (27.0-33.0); MEAN CORPUSCULAR HGB CONC 32.5 g/dl (32.0-36.5); MEAN CORPUSCULAR VOLUME 87.9 fl (80.0-96.0); MONO # 0.4 10^3/uL (0.0-0.8); MONO % 8.3 % (2.0-8.0); NEUTROPHILS # 2.9 10^3/uL (1.5-8.5); NEUTROPHILS % 58.3 % (36.0-66.0); PLATELET COUNT, AUTOMATED 308 10^3/uL (150-450); RED BLOOD COUNT 4.13 10^6/uL (4.00-5.40); WHITE BLOOD COUNT 4.9 10^3/uL (4.0-10.0)
[2021-02-27 13:34] LABS: ALT/SGPT 80 U/L (12-78); BILIRUBIN,TOTAL 0.6 MG/DL (0.2-1.0); BLOOD UREA NITROGEN 9 MG/DL (7-18); CALCIUM LEVEL 9.3 MG/DL (8.5-10.1); CARBON DIOXIDE LEVEL 27 MEQ/L (21-32); CHLORIDE LEVEL 106 MEQ/L (98-107); CHOLESTEROL LEVEL 272 MG/DL (<200); CREATININE FOR GFR 0.83 MG/DL (0.55-1.30); GLOMERULAR FILTRATION RATE > 60.0 (>60); GLUCOSE, FASTING 85 MG/DL (70-100); HDL CHOLESTEROL 40 MG/DL (>40); LDL CHOLESTEROL 179 MG/DL (<100); NON-HDL-C 232 MG/DL; POTASSIUM SERUM 3.5 MEQ/L (3.5-5.1); SODIUM LEVEL 141 MEQ/L (136-145); THYROID STIMULATING HORMONE 0.912 uIU/ML (0.358-3.740); TOTAL PROTEIN 7.4 GM/DL (6.4-8.2); TRIGLYCERIDES LEVEL 265 MG/DL (<150)
[2021-02-27 14:22] LABS: HEMOGLOBIN A1c 4.6 %
== END ==
LOC: M WUC 10:08
PROVIDERS: ATTEND Nurse Practitioner Family
DX: Z00.01 Encounter for general adult medical examination with abnormal findings (principal)

== ENCOUNTER 2021-07-16 10:28 | Emergency (ER) | payer OTHER ==
[~2021-07-16] VITALS: Ht 162.6 cm; Wt 111.7 kg
[2021-07-16] MEDS ORDERED: NS 1,000 ML IV ONE (12:20)
[2021-07-16 12:50] LABS: BASO % 0.2 % (0.0-1.0); HEMATOCRIT 35.9 % (36.0-47.0); HEMOGLOBIN 11.7 g/dl (12.0-15.5); LYMPH # 1.2 10^3/uL (1.5-5.0); LYMPH % 5.7 % (24.0-44.0); MEAN CORPUSCULAR HGB CONC 32.6 g/dl (32.0-36.5); MEAN CORPUSCULAR VOLUME 88.9 fl (80.0-96.0); MONO # 0.7 10^3/uL (0.0-0.8); MONO % 3.4 % (2.0-8.0); NEUTROPHILS # 18.3 10^3/uL (1.5-8.5); NEUTROPHILS % 90.2 % (36.0-66.0); PLATELET COUNT, AUTOMATED 368 10^3/uL (150-450); RED BLOOD COUNT 4.04 10^6/uL (4.00-5.40); WHITE BLOOD COUNT 20.2 10^3/uL (4.0-10.0)
[2021-07-16 13:17] LABS: HCG, SERUM QUALITATIVE NEGATIVE (NEGATIVE)
[2021-07-16 13:21] LABS: ALBUMIN 3.6 GM/DL (3.2-5.2); ALT/SGPT 17 U/L (12-78); BILIRUBIN,TOTAL 0.4 MG/DL (0.2-1.0); BLOOD UREA NITROGEN 12 MG/DL (7-18); CALCIUM LEVEL 9.2 MG/DL (8.5-10.1); CARBON DIOXIDE LEVEL 22 MEQ/L (21-32); CHLORIDE LEVEL 107 MEQ/L (98-107); CREATININE FOR GFR 0.72 MG/DL (0.55-1.30); GLOMERULAR FILTRATION RATE > 60.0 (>60); GLUCOSE, FASTING 110 MG/DL (70-100); LIPASE 54 U/L (73-393); POTASSIUM SERUM 3.9 MEQ/L (3.5-5.1); SODIUM LEVEL 137 MEQ/L (136-145); TOTAL PROTEIN 7.4 GM/DL (6.4-8.2)
[2021-07-16 14:40] VITALS: BP 148/88
== END 2021-07-16 14:44 | disposition home or self-care (01) ==
LOC: M ED 10:28
DX: R11.2 Nausea with vomiting, unspecified (principal); R19.7 Diarrhea, unspecified
CPT/HCPCS: 80053; 83690; 84703; 85025; 96360; 99283; U0002

== ENCOUNTER → 2022-03-22 | Outpatient (CLI) | payer OTHER | LOC: M WHC 10:16 | PROVIDERS: ATTEND Obstetrics & Gynecology | DX: Z34.81 Encounter for supervision of other normal pregnancy, first trimester (principal); Z3A.19 19 weeks gestation of pregnancy ==

== ENCOUNTER → 2022-03-29 | Outpatient (CLI) | payer OTHER | LOC: M PLALAB 13:17 | PROVIDERS: ATTEND Specialist | DX: Z34.80 Encounter for supervision of other normal pregnancy, unspecified trimester (principal); Z3A.00 Weeks of gestation of pregnancy not specified ==

== ENCOUNTER → 2022-05-10 | Outpatient (CLI) | payer OTHER | LOC: M WHC 11:49 | PROVIDERS: ATTEND Specialist | DX: Z34.82 Encounter for supervision of other normal pregnancy, second trimester (principal) ==

== ENCOUNTER → 2022-05-10 | Outpatient (CLI) | payer OTHER ==
[2022-05-10 15:17] LABS: HEMATOCRIT 33.6 % (36.0-47.0); HEMOGLOBIN 10.6 g/dl (12.0-15.5); MEAN CORPUSCULAR HEMOGLOBIN 26.5 pg (27.0-33.0); MEAN CORPUSCULAR HGB CONC 31.5 g/dl (32.0-36.5); PLATELET COUNT, AUTOMATED 230 10^3/uL (150-450); WHITE BLOOD COUNT 8.9 10^3/uL (4.0-10.0)
== END ==
LOC: M PLALAB 12:55
PROVIDERS: ATTEND Specialist
DX: Z34.82 Encounter for supervision of other normal pregnancy, second trimester (principal)

== ENCOUNTER → 2022-05-17 | Outpatient (REF) | payer OTHER ==
[2022-05-17 19:03] LABS: GC DNA AMPLIFICATION NEGATIVE (NEGATIVE)
== END ==
LOC: M SFHCWAGY 16:51
PROVIDERS: ATTEND Specialist
DX: Z34.82 Encounter for supervision of other normal pregnancy, second trimester (principal)

== ENCOUNTER → 2022-07-05 | Outpatient (CLI) | payer OTHER | LOC: M WHC 07:35 | PROVIDERS: ATTEND Obstetrics & Gynecology | DX: Z36.2 Encounter for other antenatal screening follow-up (principal); Z3A.35 35 weeks gestation of pregnancy ==

== ENCOUNTER → 2022-07-18 | Outpatient (REF) | payer OTHER | LOC: M SFHCWAGY 16:59 | PROVIDERS: ATTEND Specialist | DX: Z34.83 Encounter for supervision of other normal pregnancy, third trimester (principal) ==

== ENCOUNTER 2022-08-14 09:31 | Inpatient (IN) | payer OTHER ==
[~2022-08-14] VITALS: Ht 162.6 cm; Wt 115.7 kg
[2022-08-14] VITALS (8 sets, daily range): BP systolic 117–147; BP diastolic 65–81
[2022-08-14] MEDS ORDERED: PROMETHAZINE 25MG/ML 1ML VIAL IV ONE (10:05)
[2022-08-14] MEDS ORDERED: OXYTOCIN INJ 10 UNITS/ML VIAL (J2590) IM PRN (10:05)
[2022-08-14] MEDS ORDERED: TRANEXAMIC ACID INJection 1,000 MG in NS 100 ML IV PRN (10:05)
[2022-08-14] MEDS ORDERED: BUTORPHANOL 2 MG/ML INJ (J0595) IV ONE (10:05)
[2022-08-14] MEDS ORDERED: LIDOCAINE 1% MDV 20ML VIAL INFIL PRN (10:05)
[2022-08-14] MEDS ORDERED: CARBOPROST TROMETHAMINE 250 MCG/ML AMP IM PRN (10:05)
[2022-08-14] MEDS ORDERED: ONDANSETRON 4MG 2ML VIAL IV ONE (10:05)
[2022-08-14] MEDS ORDERED: OXYTOCIN DRIP 30 UNITS in IV 1 EA IV PRN ×4 (10:05)
[2022-08-14] MEDS ORDERED: METHYLERGONOVINE MALEATE 0.2 MG/ML VIAL (J2210) IM PRN (10:05)
[2022-08-14] MEDS ORDERED: PRENTAB9 PO (10:13)
[2022-08-14 10:19] LABS: HEMATOCRIT 33.8 % (36.0-47.0); HEMOGLOBIN 10.4 g/dl (12.0-15.5); MEAN CORPUSCULAR HEMOGLOBIN 24.1 pg (27.0-33.0); MEAN CORPUSCULAR HGB CONC 30.8 g/dl (32.0-36.5); MEAN CORPUSCULAR VOLUME 78.4 fl (80.0-96.0); PLATELET COUNT, AUTOMATED 254 10^3/uL (150-450); RED BLOOD COUNT 4.31 10^6/uL (4.00-5.40); WHITE BLOOD COUNT 11.5 10^3/uL (4.0-10.0)
[2022-08-14] MEDS ORDERED: HOME MED LIST COMPLETE! XX SCH (15:35)
[2022-08-15 06:00] VITALS: BP 134/70
== END 2022-08-15 18:10 | disposition home or self-care (01) | DRG 560 ==
LOC: M LDO 09:31 → M LDI 09:59 → M OBS 14:12
PROVIDERS: ADMIT Advanced Practice Midwife; ATTEND Advanced Practice Midwife
PROC: 10E0XZZ Delivery of Products of Conception, External Approach (ICD-10-PCS; principal; 2022-08-14)
PROC: 10907ZC Drainage of Amniotic Fluid, Therapeutic from Products of Conception, Via Natural or Artificial Opening (ICD-10-PCS; 2022-08-14)
DX: O48.0 Post-term pregnancy (principal); O77.0 Labor and delivery complicated by meconium in amniotic fluid; Z37.0 Single live birth; Z3A.40 40 weeks gestation of pregnancy

== ENCOUNTER → 2024-06-21 | Outpatient (CLI) | payer OTHER ==
[~2024-06-21] MED LIST changes: +PRENTAB9 PO
== END ==
LOC: M RAD 14:18
PROVIDERS: ATTEND Advanced Practice Midwife
DX: T83.39XA Other mechanical complication of intrauterine contraceptive device, initial encounter (principal); Y93.9 Activity, unspecified; Y92.9 Unspecified place or not applicable

== ENCOUNTER → 2024-12-02 | Outpatient (REF) | payer OTHER ==
[2024-12-02 13:30] LABS: TOTAL PROTEIN,RANDOM URINE 13.6 MG/DL (0.0-14.0)
[2024-12-02 13:34] LABS: CREATININE,RANDOM URINE 140.3 MG/DL
[2024-12-02 14:37] LABS: GC DNA AMPLIFICATION NEGATIVE (NEGATIVE)
== END ==
LOC: M PLALAB 10:59
PROVIDERS: ATTEND Nurse Practitioner Family
DX: Z34.81 Encounter for supervision of other normal pregnancy, first trimester (principal)

== ENCOUNTER → 2024-12-27 | Outpatient (CLI) | payer OTHER ==
[2024-12-27 14:05] LABS: HEMATOCRIT 38.9 % (36.0-47.0); MEAN CORPUSCULAR HEMOGLOBIN 29.5 pg (27.0-33.0); MEAN CORPUSCULAR HGB CONC 33.4 g/dl (32.0-36.5); MEAN CORPUSCULAR VOLUME 88.2 fl (80.0-96.0); PLATELET COUNT, AUTOMATED 220 10^3/uL (150-450); RED BLOOD COUNT 4.41 10^6/uL (4.00-5.40); WHITE BLOOD COUNT 8.3 10^3/uL (4.0-10.0)
[2024-12-27 14:39] LABS: URIC ACID 4.4 MG/DL (3.1-7.8)
[2024-12-27 14:41] LABS: LDH LACTATE DEHYDROGENASE 150 U/L (120-246)
[2024-12-27 14:42] LABS: ALT/SGPT 12 U/L (7.0-40); AST/SGOT 8 U/L (<34); BILIRUBIN,TOTAL 0.2 MG/DL (0.3-1.2); CREATININE FOR GFR 0.52 MG/DL (0.55-1.30); GLOMERULAR FILTRATION RATE > 60.0 (>60)
[2024-12-27 14:44] LABS: HEMOGLOBIN A1c 4.9 % (4.0-6.0)
[2024-12-27 15:07] LABS: HIV 1&2 SCREEN NEGATIVE (NEGATIVE)
[2024-12-27 15:14] LABS: HEPATITIS C VIRUS ABY INDEX 0.12 INDEX (<0.8)
== END ==
LOC: M PLALAB 09:40
PROVIDERS: ATTEND Nurse Practitioner Family
DX: Z34.81 Encounter for supervision of other normal pregnancy, first trimester (principal)

== ENCOUNTER → 2025-02-14 | Outpatient (CLI) | payer OTHER | LOC: M WHC 10:09 | PROVIDERS: ATTEND Nurse Practitioner Family | DX: Z36.89 Encounter for other specified antenatal screening (principal) ==

== ENCOUNTER → 2025-03-08 | Outpatient (CLI) | payer OTHER | LOC: M WHC 12:03 | PROVIDERS: ATTEND Advanced Practice Midwife | DX: Z34.82 Encounter for supervision of other normal pregnancy, second trimester (principal) ==

== ENCOUNTER → 2025-03-15 | Outpatient (CLI) | payer OTHER ==
[2025-03-15 15:11] LABS: HEMATOCRIT 35.7 % (36.0-47.0); HEMOGLOBIN 11.9 g/dl (12.0-15.5); MEAN CORPUSCULAR HEMOGLOBIN 29.5 pg (27.0-33.0); MEAN CORPUSCULAR HGB CONC 33.3 g/dl (32.0-36.5); MEAN CORPUSCULAR VOLUME 88.6 fl (80.0-96.0); PLATELET COUNT, AUTOMATED 227 10^3/uL (150-450); RED BLOOD COUNT 4.03 10^6/uL (4.00-5.40); WHITE BLOOD COUNT 8.7 10^3/uL (4.0-10.0)
[2025-03-15 15:34] LABS: GLUCOSE CHALLENGE TEST 1 HOUR 111 MG/DL (LESS THAN 140)
[2025-03-15 16:09] LABS: HIV 1&2 SCREEN NEGATIVE (NEGATIVE)
[2025-03-15 16:17] LABS: HEPATITIS C VIRUS ABY INDEX < 0.02 INDEX (<0.8); Trichomonas vaginalis (AMP) NOT DETECTED (NEGATIVE)
[2025-03-15 16:40] LABS: GC DNA AMPLIFICATION NEGATIVE (NEGATIVE)
== END ==
LOC: M PLALAB 11:45
PROVIDERS: ATTEND Advanced Practice Midwife
DX: Z34.82 Encounter for supervision of other normal pregnancy, second trimester (principal)

== ENCOUNTER → 2025-05-19 | Outpatient (CLI) | payer MEDICAID, OTHER, SELFPAY | LOC: M RAD 07:19 | PROVIDERS: ATTEND Obstetrics & Gynecology | DX: R60.9 Edema, unspecified (principal) ==

== ENCOUNTER → 2025-05-25 | Outpatient (CLI) | payer MEDICAID | LOC: M WHC 07:29 | PROVIDERS: ATTEND Obstetrics & Gynecology | DX: O99.213 Obesity complicating pregnancy, third trimester (principal) ==

== ENCOUNTER → 2025-05-26 | Outpatient (CLI) | payer OTHER ==
[2025-05-26 18:07] LABS: PLATELET COUNT, AUTOMATED 238 10^3/uL (150-450)
[2025-05-26 18:11] LABS: ALT/SGPT 15 U/L (7.0-40); AST/SGOT 14 U/L (<34); CALCIUM LEVEL 9.1 MG/DL (8.5-10.1); CARBON DIOXIDE LEVEL 23 MMOL/L (20-31); CHLORIDE LEVEL 105 MMOL/L (98-107); CREATININE FOR GFR 0.58 MG/DL (0.55-1.30); GLOMERULAR FILTRATION RATE > 90.0 (>60); POTASSIUM SERUM 4.3 MMOL/L (3.5-5.1); SODIUM LEVEL 140 MMOL/L (136-145)
[2025-05-26 18:29] LABS: TOTAL PROTEIN,RANDOM URINE 21.0 MG/DL (0.0-14.0)
== END ==
LOC: M PLALAB 12:07
PROVIDERS: ATTEND Obstetrics & Gynecology
DX: O16.9 Unspecified maternal hypertension, unspecified trimester (principal)

== ENCOUNTER → 2025-05-27 | Outpatient (REF) | payer OTHER | LOC: M PLALAB 09:27 | PROVIDERS: ATTEND Obstetrics & Gynecology | DX: O99.213 Obesity complicating pregnancy, third trimester (principal) ==

== ENCOUNTER 2025-06-15 07:22 | Inpatient (IN) | payer OTHER ==
[~2025-06-15] VITALS: Ht 162.6 cm; Wt 132.2 kg
[2025-06-15] VITALS (11 sets, daily range): BP systolic 119–143; BP diastolic 64–90
[2025-06-15] MEDS ORDERED: TRANEXAMIC ACID INJection 1,000 MG in NS 100 ML IV PRN (08:05)
[2025-06-15] MEDS: LACTATED RINGER'S 1000 ML IV STA (08:05)
[2025-06-15] MEDS ORDERED: LIDOCAINE 1% MDV 20 ML VIAL INFIL PRN (08:05)
[2025-06-15] MEDS ORDERED: OXYTOCIN INJ 10UNITS/ML 1ML VIAL IM PRN (08:05)
[2025-06-15] MEDS ORDERED: CARBOPROST TROMETHAMINE 250 MCG/ML AMP IM PRN (08:05)
[2025-06-15] MEDS ORDERED: METHYLERGONOVINE MALEATE 0.2 MG/ML 1 ML VIAL IM PRN (08:05)
[2025-06-15] MEDS ORDERED: ECOT81TA5 PO (08:08)
[2025-06-15 09:16] LABS: PLATELET COUNT, AUTOMATED 217 10^3/uL (150-450)
[2025-06-15] MEDS: miSOPROStol 50 MCG 1/2 TABLET PO SCH (09:25)
[2025-06-15 10:03] LABS: HIV 1&2 SCREEN NEGATIVE (NEGATIVE)
[2025-06-15 10:15] LABS: HEPATITIS C VIRUS ABY INDEX < 0.02 INDEX (<0.8)
[2025-06-15] MEDS ORDERED: LR 1,000 ML IV SCH (20:35)
[2025-06-15] MEDS: OXYTOCIN DRIP 30 UNITS in IV 1 EA IV SCH (22:59)
[2025-06-15] MEDS: LR 1,000 ML IV SCH (22:59)
[2025-06-16] VITALS (17 sets, daily range): BP systolic 124–155; BP diastolic 62–105; O2SAT 97–99
[2025-06-16] MEDS: PROMETHAZINE 25MG/ML 1ML VIAL IV ONE (02:21)
[2025-06-16] MEDS: BUTORPHANOL 2 MG/ML 1 ML VIAL IV ONE ×2 (02:22→05:45)
[2025-06-16] MEDS ORDERED: ACETAMINOPHEN 500 MG TAB PO PRN (09:40)
[2025-06-16] MEDS ORDERED: RHOGAM 300MCG (1500IU) INJ IM SCH (09:40)
[2025-06-16] MEDS: OXYTOCIN DRIP 30 UNITS in IV 1 EA IV PRN ×2 (09:47→10:14)
[2025-06-16 09:57] LABS: CORD GAS ABE A -8.0; CORD GAS ABE V -6.4; CORD GAS HCO3 A 20.7 MMOL/L; CORD GAS HCO3 V 20.1 MMOL/L; CORD GAS O2 SAT A 75.1 %; CORD GAS O2 SAT V 80.3 %; CORD GAS PCO2 A 54.9 mmHg; CORD GAS PCO2 V 43.2 mmHg; CORD GAS PH A 7.195 UNITS; CORD GAS PH V 7.285 UNITS; CORD GAS PO2 A 40.6 mmHg; CORD GAS PO2 V 40.9 mmHg; CORD GAS SBC A 17.6 MMOL/L; CORD GAS SBC V 18.9 MMOL/L; CORD GAS TCO2 A 22.4 MMOL/L; CORD GAS TCO2 V 21.4 MMOL/L
[2025-06-16] MEDS: DIBUCAINE 1% OINTMENT 30 GM TOP PRN (12:38)
[2025-06-16] MEDS: DOCUSATE SODIUM 100 MG CAPSULE PO PRN (21:23)
[2025-06-17 05:58] VITALS: BP 121/75; O2SAT 98
[2025-06-17] MEDS: IBUPROFEN 800 MG TAB PO PRN (08:32)
[2025-06-17] MEDS: PRENATAL VITAMINS CHEWABLE TABLET PO SCH (08:32)
[2025-06-17] MEDS ORDERED: PRENATAL VITAMINS CHEWABLE TABLET PO SCH (09:00)
[2025-06-18] MEDS ORDERED: MEASLES,MUMPS,RUBELLA VACCINE INJ (MMR-II) SC.IMMUN ONE (09:00)
== END 2025-06-17 13:35 | disposition home or self-care (01) | DRG 560 ==
LOC: M LDI 07:22 → M OBS 06-16 11:44
PROVIDERS: ADMIT Advanced Practice Midwife; ATTEND Obstetrics & Gynecology
PROC: 3E0P7GC Introduction of Other Therapeutic Substance into Female Reproductive, Via Natural or Artificial Opening (ICD-10-PCS; 2025-06-15)
PROC: 10E0XZZ Delivery of Products of Conception, External Approach (ICD-10-PCS; principal; 2025-06-16)
DX: O36.63X0 Maternal care for excessive fetal growth, third trimester, not applicable or unspecified (principal); O32.6XX0 Maternal care for compound presentation, not applicable or unspecified; Z3A.39 39 weeks gestation of pregnancy; Z37.0 Single live birth; O69.81X0 Labor and delivery complicated by cord around neck, without compression, not applicable or unspecified

== ENCOUNTER → 2025-09-26 | Outpatient (REF) | payer OTHER ==
[~2025-09-26] MED LIST changes: +ECOT81TA5 PO
[2025-09-29 16:03] LABS: HPV APTIMA Not Detected (Not Detected)
== END ==
LOC: M PLALAB 14:35
PROVIDERS: ATTEND Obstetrics & Gynecology
DX: Z12.4 Encounter for screening for malignant neoplasm of cervix (principal); R87.618 Other abnormal cytological findings on specimens from cervix uteri